=== PATIENT | female | born 1965 | race Two or more races ===

== ENCOUNTER 2022-10-01 19:18 | Emergency (ER) | payer BC ==
[~2022-10-01] VITALS: Ht 172.7 cm; Wt 74.1 kg
[2022-10-01] MEDS ORDERED: TETANUS-DIPTH-ACEL PERTUSSIS 0.5ML SYR Tdap IM ONE (20:15)
[2022-10-01] MEDS ORDERED: NEOMYCIN-BACITRACIN-POLYM UNITDOSE PKG TOP OINT TOP ONE (20:15)
[2022-10-01] MEDS ORDERED: IBUP800T26 PO (20:51)
[2022-10-01] MEDS ORDERED: CEPH-510 PO (20:51)
[2022-10-01] MEDS ORDERED: ACET-1158 PO (20:51)
[2022-10-01] MEDS ORDERED: MAX35OO TOP (20:51)
[2022-10-01 21:03] VITALS: BP 134/78
== END 2022-10-01 21:08 | disposition home or self-care (01) ==
LOC: ER 19:18
DX: S61.217A Laceration without foreign body of left little finger without damage to nail, initial encounter (principal); W26.0XXA Contact with knife, initial encounter; Y93.89 Activity, other specified; Y92.89 Other specified places as the place of occurrence of the external cause; Y99.8 Other external cause status
CPT/HCPCS: 12001; 90471; 90715